=== PATIENT | female | born 1990 | race Caucasian/White ===

== ENCOUNTER 2016-11-01 06:15 | Inpatient (IN) | payer BC ==
[~2016-11-01] VITALS: Ht 162.7 cm; Wt 88.2 kg
[2016-11-01] VITALS (65 sets, daily range): BP systolic 68–160; BP diastolic 33–99; PULSE 75–142; TEMP 97.3–98
[2016-11-01] MEDS ORDERED: LAMICTAL150 MG PO (06:51)
[2016-11-01] MEDS ORDERED: EFFEXOR 75M75 MG/TAB PO (06:52)
[2016-11-01] MEDS ORDERED: SEROQUEL 200MG200 MG PO (06:52)
[2016-11-01] MEDS ORDERED: VITAMIN B-6100 MG PO (06:53)
[2016-11-01] MEDS ORDERED: CLARITIN 1010 MG/TAB PO (06:54)
[2016-11-01] MEDS ORDERED: PRENATAL PO (06:54)
[2016-11-01] MEDS ORDERED: VALTREX 50500 MG/TAB PO (07:01)
[2016-11-01 08:14] LABS: PH 7 (5-8); URINE APPEARANCE Hazy; URINE BACTERIA Rare /hpf; URINE BILIRUBIN Negative (NEGATIVE); URINE BLOOD 3+ (NEGATIVE); URINE COLOR Yellow; URINE GLUCOSE Negative (NEGATIVE); URINE KETONE Negative (NEGATIVE); URINE RBC >50 /hpf; URINE UROBILINOGEN Negative (NEGATIVE)
[2016-11-01 08:18] LABS: BASO % 0.2 % (0.0-2.0); EOS # 0.1 (0.0-0.7); EOS % 0.8 % (0-4.0); GRAN # 6.6 (1.4-6.5); GRAN % 72.9 % (42.2-75.2); LYMPH # 1.6 (1.2-3.4); LYMPH % 17.8 % (20.0-51.0); MEAN CELL VOLUME 86 fl (80.0-100.0); MEAN CORPUSCULAR HGB CONC 35 g/dl (33.0-37.0); MEAN PLATELET VOLUME 10.4 fl (7.4-10.4); MONO # 0.7 (0.1-0.6); MONO % 7.9 % (1.7-9.3); PLATELET COUNT 122 K/mm3 (130-400); RED BLOOD COUNT 3.86 M/mm3 (4.10-5.30); REDCELL DISTRIBUTION WIDTH-CV 14.7 % (11.5-14.5)
[2016-11-01 08:31] LABS: HEMOGLOBIN 11.6 g/dl (12.5-16.0); MEAN CORPUSCULAR HEMOGLOBIN 30 pg (27.0-31.0)
[2016-11-01 09:00] LABS: ADJUSTED CALCIUM 10.2 mg/dL (8.4-10.2); ALBUMIN 3.5 gm/dL (3.5-5.0); BILIRUBIN,TOTAL 0.5 mg/dL (0.0-1.0); CALCIUM 9.8 mg/dL (8.4-10.2); CREATININE, serum 0.7 mg/dL (0.52-1.25); POTASSIUM 3.9 mmol/L (3.4-5.0); TOTAL PROTEIN 6.4 gm/dL (6.4-8.2)
[2016-11-02] VITALS (7 sets, daily range): BP systolic 124–146; BP diastolic 59–94; PULSE 95–112; TEMP 97.8
[2016-11-02 07:32] LABS: HEMATOCRIT 26.9 % (37.0-47.0); HEMOGLOBIN 9.3 g/dl (12.5-16.0)
[2016-11-02] MEDS ORDERED: IBU800 M1 PO (08:39)
[2016-11-02] MEDS ORDERED: PERCOCET 325 MG1 TA2 PO (08:39)
[2016-11-03 00:01] VITALS: BP 136/83; PULSE 107; TEMP 98.6
[2016-11-03 03:05] VITALS: BP 136/87; PULSE 102; TEMP 97.6
[2016-11-03 07:29] VITALS: BP 131/83; PULSE 97; TEMP 98.1
[2016-11-03] MEDS ORDERED: PERCOCET 325 MG1 TA3 PO (08:39)
[2016-11-03] MEDS ORDERED: IBU800 M1 PO (08:39)
== END 2016-11-03 09:45 | disposition home or self-care (01) | DRG 766 ==
LOC: LDRO 06:15 → OB 07:47 → LDR 07:47 → OB 23:00 → LDRO 11-12 10:15
PROVIDERS: Obstetrics & Gynecology
PROC: 10D00Z1 Extraction of Products of Conception, Low, Open Approach (ICD-10-PCS; principal; 2016-11-01)
DX: O42.02 Full-term premature rupture of membranes, onset of labor within 24 hours of rupture (principal); O76 Abnormality in fetal heart rate and rhythm complicating labor and delivery; O43.193 Other malformation of placenta, third trimester; Z3A.38 38 weeks gestation of pregnancy; Z37.0 Single live birth
CPT/HCPCS: A9284; J0690; J1885; J2270; J2370; J2400; J2405; J2590; J7120

== ENCOUNTER 2017-03-16 08:48 | Emergency (ER) | payer BC ==
[~2017-03-16] VITALS: Ht 162.6 cm; Wt 70.5 kg
[~2017-03-16 08:48] MED LIST: CLARITIN 1010 MG/TAB PO; EFFEXOR 75M75 MG/TAB PO; IBU800 M1 PO; LAMICTAL150 MG PO; PERCOCET 325 MG1 TA2 PO; PERCOCET 325 MG1 TA3 PO; PRENATAL PO; SEROQUEL 200MG200 MG PO; VALTREX 50500 MG/TAB PO; VITAMIN B-6100 MG PO
[2017-03-16 08:53] VITALS: TEMP 98
[2017-03-16 09:40] LABS: BASO % 0.2 % (0.0-2.0); EOS # 0.2 (0.0-0.7); EOS % 4.3 % (0-4.0); GRAN # 2.9 (1.4-6.5); GRAN % 66.1 % (42.2-75.2); HEMATOCRIT 37.5 % (37.0-47.0); HEMOGLOBIN 12.5 g/dl (12.5-16.0); LYMPH # 0.9 (1.2-3.4); LYMPH % 19.9 % (20.0-51.0); MEAN CELL VOLUME 87 fl (80.0-100.0); MEAN CORPUSCULAR HEMOGLOBIN 29 pg (27.0-31.0); MEAN CORPUSCULAR HGB CONC 33 g/dl (33.0-37.0); MEAN PLATELET VOLUME 9.5 fl (7.4-10.4); MONO # 0.4 (0.1-0.6); MONO % 9.3 % (1.7-9.3); PLATELET COUNT 120 K/mm3 (130-400); RED BLOOD COUNT 4.31 M/mm3 (4.10-5.30); REDCELL DISTRIBUTION WIDTH-CV 13.7 % (11.5-14.5); WHITE BLOOD COUNT 4.4 K/mm3 (4.8-10.8)
[2017-03-16 09:50] LABS: ADJUSTED CALCIUM 8.8 mg/dL (8.4-10.2); ALBUMIN 4.5 gm/dL (3.5-5.0); BILIRUBIN,TOTAL 0.4 mg/dL (0.0-1.0); CALCIUM 9.2 mg/dL (8.4-10.2); CREATININE, serum 0.9 mg/dL (0.52-1.25); POTASSIUM 3.6 mmol/L (3.4-5.0); TOTAL PROTEIN 7.1 gm/dL (6.4-8.2)
[2017-03-16 10:55] LABS: PH 6 (5-8); SQUAMOUS EPITHELIAL None Seen /hpf; URINE APPEARANCE Clear; URINE BACTERIA None Seen /hpf; URINE BILIRUBIN Negative (NEGATIVE); URINE BLOOD 2+ (NEGATIVE); URINE COLOR Straw; URINE GLUCOSE Negative (NEGATIVE); URINE KETONE Negative (NEGATIVE); URINE RBC 0-2 /hpf; URINE UROBILINOGEN Negative (NEGATIVE)
[2017-03-16] MEDS ORDERED: CEPHALEXIN500 M1 PO (11:13)
[2017-03-16 11:28] VITALS: BP 106/62; PULSE 70
== END 2017-03-16 11:29 | disposition home or self-care (01) ==
LOC: COL.ER 08:48
PROVIDERS: Emergency Medicine
DX: N39.0 Urinary tract infection, site not specified (principal); I95.9 Hypotension, unspecified; F31.9 Bipolar disorder, unspecified; Z98.890 Other specified postprocedural states
CPT/HCPCS: J7030